=== PATIENT | female | born 1950 | race Caucasian/White ===

== ENCOUNTER 2022-07-04 09:16 | Inpatient (IN) ==
[2022-07-04] MEDS ORDERED: Dextrose 50% Syringe 50 ml 25 GM/50 ML SYRINGE IV PUSH PRN (09:40)
[2022-07-04] MEDS ORDERED: Benzocaine/Menthol LOZ PO PRN (09:51)
[2022-07-04] MEDS ORDERED: Sodium Polystyrene ORAL.SUSP 15 GM/60 ML BTL PO ONE (12:30)
[2022-07-05 06:51] LABS: ABS Eosinophils 0.4 10^3/ul (0-0.6); ABS Lymphocytes 0.8 10^3/ul (1.0-4.8); ABS Monocytes 0.6 10^3/ul (0-0.8); Eosinophil % 6.1 %; Hematocrit 28 % (35-47); Hemoglobin 9.1 g/dL (12.0-16.0); Mean Corpuscular HGB Conc 33 g/dL (31-36); Mean Corpuscular Hemoglobin 30 pg (27-31); Mean Corpuscular Volume 92 fL (80-97); Mean Platelet Volume 7.4 fL (7.4-10.4); Nucleated Red Blood Cells % 0.1; Platelet Count 228 10^3/uL (150-450); Red Blood Count 3.05 10^6 /uL (3.70-4.87); Red Cell Distribution Width 14 % (10-15); White Blood Count 5.9 10^3/uL (3.5-10.8)
[2022-07-05 07:10] LABS: ALT 14 U/L (7-52); Albumin 3.4 g/dL (3.2-5.2); Albumin/Globulin Ratio 1.5 (1-3); Alkaline Phosphatase 58 U/L (35-149); Blood Urea Nitrogen 14 mg/dL (6-24); CO2 Carbon Dioxide 27 mmol/L (22-32); Calcium 8.3 mg/dL (8.6-10.3); Chloride 102 mmol/L (101-111); Creatinine, Serum 0.83 mg/dL (0.51-0.95); Globulin 2.3 g/dL (2-4); Glucose 102 mg/dL (70-100); Sodium 135 mmol/L (135-145); Total Protein 5.7 g/dL (6.4-8.9); eGFR CKD-EPI 74.9 (>60)
[2022-07-05 07:19] LABS: Anion Gap 6 mmol/L (2-11)
[2022-07-05] MEDS: Cholecalciferol (VIT D3) 1,000 unit TAB PO SCH (07:38)
[2022-07-05] MEDS: DULoxetine DR 60 mg CAP PO SCH (07:40)
[2022-07-05] MEDS: Multivitamins/Minerals TAB PO SCH (07:41)
[2022-07-05 09:17] LABS: Potassium Redraw 5.5 mmol/L (3.5-5.0)
[2022-07-05] MEDS: Polyethylene Glycol 3350 17 GM PACKET PO SCH (09:23)
[2022-07-05] MEDS: CMCS: Cyclosporine 0.05% OPHTH (NF) 0.4 ML VIAL BOTH EYES SCH (09:24)
[2022-07-05] MEDS: Enoxaparin 40 MG/0.4 ML SYR SUBCUT SCH (09:25)
[2022-07-05] MEDS: Fluticasone NASAL SPRAY 50MCG 16 gm SPRAY BTL BOTH NARES SCH (09:28)
[2022-07-05] MEDS: Senna TAB 8.6 mg TAB PO PRN (20:02)
[2022-07-05] MEDS ORDERED: Sodium Polystyrene ORAL.SUSP 15 GM/60 ML BTL PO ONE (20:14)
[2022-07-06] MEDS: CMCS: Cyclosporine 0.05% OPHTH (NF) 0.4 ML VIAL BOTH EYES SCH (07:44)
[2022-07-06] MEDS: Fluticasone NASAL SPRAY 50MCG 16 gm SPRAY BTL BOTH NARES SCH (07:44)
[2022-07-06] MEDS: DULoxetine DR 60 mg CAP PO SCH (07:45)
[2022-07-06] MEDS: Cholecalciferol (VIT D3) 1,000 unit TAB PO SCH (07:46)
[2022-07-06] MEDS: LINAGLIPTIN 5 MG PO SCH (07:47)
[2022-07-06] MEDS: Multivitamins/Minerals TAB PO SCH (07:47)
[2022-07-06] MEDS: Enoxaparin 40 MG/0.4 ML SYR SUBCUT SCH (07:49)
[2022-07-06] MEDS: Polyethylene Glycol 3350 17 GM PACKET PO SCH (07:54)
[2022-07-06 08:47] LABS: Calcium 8.4 mg/dL (8.6-10.3); Creatinine, Serum 0.94 mg/dL (0.51-0.95); Potassium 4.4 mmol/L (3.5-5.0); eGFR CKD-EPI 64.5 (>60)
[2022-07-07] MEDS: LINAGLIPTIN 5 MG PO SCH (08:47)
[2022-07-07] MEDS: Cholecalciferol (VIT D3) 1,000 unit TAB PO SCH (08:49)
[2022-07-07] MEDS: DULoxetine DR 60 mg CAP PO SCH (08:49)
[2022-07-07] MEDS: Multivitamins/Minerals TAB PO SCH (08:49)
[2022-07-07] MEDS: Fluticasone NASAL SPRAY 50MCG 16 gm SPRAY BTL BOTH NARES SCH (08:53)
[2022-07-07] MEDS: Polyethylene Glycol 3350 17 GM PACKET PO SCH (08:54)
[2022-07-07] MEDS: Enoxaparin 40 MG/0.4 ML SYR SUBCUT SCH (08:55)
[2022-07-07] MEDS: CMCS: Cyclosporine 0.05% OPHTH (NF) 0.4 ML VIAL BOTH EYES SCH (08:57)
[2022-07-08] MEDS: Fluticasone NASAL SPRAY 50MCG 16 gm SPRAY BTL BOTH NARES SCH (08:13)
[2022-07-08] MEDS: CMCS: Cyclosporine 0.05% OPHTH (NF) 0.4 ML VIAL BOTH EYES SCH (08:13)
[2022-07-08] MEDS: Multivitamins/Minerals TAB PO SCH (08:13)
[2022-07-08] MEDS: DULoxetine DR 60 mg CAP PO SCH (08:13)
[2022-07-08] MEDS: Cholecalciferol (VIT D3) 1,000 unit TAB PO SCH (08:15)
[2022-07-08] MEDS: LINAGLIPTIN 5 MG PO SCH (08:15)
[2022-07-08] MEDS: Enoxaparin 40 MG/0.4 ML SYR SUBCUT SCH (08:16)
[2022-07-08] MEDS: Polyethylene Glycol 3350 17 GM PACKET PO SCH (09:28)
[2022-07-08] MEDS: Senna TAB 8.6 mg TAB PO PRN (21:20)
[2022-07-09] MEDS: Fluticasone NASAL SPRAY 50MCG 16 gm SPRAY BTL BOTH NARES SCH (08:53)
[2022-07-09] MEDS: CMCS: Cyclosporine 0.05% OPHTH (NF) 0.4 ML VIAL BOTH EYES SCH (08:53)
[2022-07-09] MEDS: Enoxaparin 40 MG/0.4 ML SYR SUBCUT SCH (08:54)
[2022-07-09] MEDS: LINAGLIPTIN 5 MG PO SCH (08:55)
[2022-07-09] MEDS: Polyethylene Glycol 3350 17 GM PACKET PO SCH (08:55)
[2022-07-09] MEDS: DULoxetine DR 60 mg CAP PO SCH (08:56)
[2022-07-09] MEDS: Multivitamins/Minerals TAB PO SCH (08:56)
[2022-07-09] MEDS: Cholecalciferol (VIT D3) 1,000 unit TAB PO SCH (08:56)
[2022-07-09] MEDS: Magnesium Hydroxide LIQ 30 ML UDC PO PRN (16:08)
[2022-07-09] MEDS ORDERED: Senna TAB 8.6 mg TAB PO SCH (21:00)
[2022-07-10] MEDS: Cholecalciferol (VIT D3) 1,000 unit TAB PO SCH (08:54)
[2022-07-10] MEDS: LINAGLIPTIN 5 MG PO SCH (08:58)
[2022-07-10] MEDS: Fluticasone NASAL SPRAY 50MCG 16 gm SPRAY BTL BOTH NARES SCH (08:59)
[2022-07-10] MEDS: DULoxetine DR 60 mg CAP PO SCH (09:00)
[2022-07-10] MEDS: CMCS: Cyclosporine 0.05% OPHTH (NF) 0.4 ML VIAL BOTH EYES SCH (09:01)
[2022-07-10] MEDS: Multivitamins/Minerals TAB PO SCH (09:02)
[2022-07-10] MEDS: Enoxaparin 40 MG/0.4 ML SYR SUBCUT SCH (09:03)
[2022-07-10] MEDS: Polyethylene Glycol 3350 17 GM PACKET PO SCH (09:07)
[2022-07-10] MEDS: Magnesium Hydroxide LIQ 30 ML UDC PO PRN (15:25)
[2022-07-10] MEDS: Senna TAB 8.6 mg TAB PO SCH (20:01)
[2022-07-11] MEDS: Fluticasone NASAL SPRAY 50MCG 16 gm SPRAY BTL BOTH NARES SCH (08:59)
[2022-07-11] MEDS: LINAGLIPTIN 5 MG PO SCH (09:00)
[2022-07-11] MEDS: CMCS: Cyclosporine 0.05% OPHTH (NF) 0.4 ML VIAL BOTH EYES SCH (09:00)
[2022-07-11] MEDS: Polyethylene Glycol 3350 17 GM PACKET PO SCH (09:00)
[2022-07-11] MEDS: Multivitamins/Minerals TAB PO SCH (09:02)
[2022-07-11] MEDS: Cholecalciferol (VIT D3) 1,000 unit TAB PO SCH (09:02)
[2022-07-11] MEDS: DULoxetine DR 60 mg CAP PO SCH (09:02)
[2022-07-11] MEDS: Enoxaparin 40 MG/0.4 ML SYR SUBCUT SCH (09:06)
[2022-07-11] MEDS: Senna TAB 8.6 mg TAB PO SCH (21:04)
[2022-07-12 06:27] LABS: ABS Basophils 0.1 10^3/ul (0-0.2); ABS Eosinophils 0.4 10^3/ul (0-0.6); ABS Lymphocytes 1.6 10^3/ul (1.0-4.8); ABS Monocytes 0.8 10^3/ul (0-0.8); ABS Neutrophils 5.4 10^3/ul (1.5-7.7); Hematocrit 31 % (35-47); Hemoglobin 10.2 g/dL (12.0-16.0); Lymphocyte % 19.7 %; Mean Corpuscular HGB Conc 33 g/dL (31-36); Mean Corpuscular Hemoglobin 30 pg (27-31); Mean Corpuscular Volume 91 fL (80-97); Platelet Count 469 10^3/uL (150-450); Red Blood Count 3.39 10^6 /uL (3.70-4.87); Red Cell Distribution Width 15 % (10-15); White Blood Count 8.3 10^3/uL (3.5-10.8)
[2022-07-12 06:46] LABS: Albumin 3.8 g/dL (3.2-5.2); Albumin/Globulin Ratio 1.7 (1-3); Calcium 9.1 mg/dL (8.6-10.3); Creatinine, Serum 0.91 mg/dL (0.51-0.95); Globulin 2.3 g/dL (2-4); Potassium 4.9 mmol/L (3.5-5.0); Total Bilirubin 0.6 mg/dL (0.2-1.0); Total Protein 6.1 g/dL (6.4-8.9)
[2022-07-12] MEDS: Polyethylene Glycol 3350 17 GM PACKET PO SCH (07:33)
[2022-07-12] MEDS: Cholecalciferol (VIT D3) 1,000 unit TAB PO SCH (07:36)
[2022-07-12] MEDS: DULoxetine DR 60 mg CAP PO SCH (07:37)
[2022-07-12] MEDS: Multivitamins/Minerals TAB PO SCH (07:37)
[2022-07-12] MEDS: LINAGLIPTIN 5 MG PO SCH (07:37)
[2022-07-12] MEDS: Enoxaparin 40 MG/0.4 ML SYR SUBCUT SCH (07:41)
[2022-07-12] MEDS: CMCS: Cyclosporine 0.05% OPHTH (NF) 0.4 ML VIAL BOTH EYES SCH (10:32)
[2022-07-12] MEDS: Fluticasone NASAL SPRAY 50MCG 16 gm SPRAY BTL BOTH NARES SCH (10:34)
[2022-07-12] MEDS: Magnesium Hydroxide LIQ 30 ML UDC PO PRN (17:12)
[2022-07-12] MEDS: Senna TAB 8.6 mg TAB PO SCH (19:09)
[2022-07-13] MEDS: Fluticasone NASAL SPRAY 50MCG 16 gm SPRAY BTL BOTH NARES SCH (08:04)
[2022-07-13] MEDS: LINAGLIPTIN 5 MG PO SCH (08:04)
[2022-07-13] MEDS: Cholecalciferol (VIT D3) 1,000 unit TAB PO SCH (08:07)
[2022-07-13] MEDS: CMCS: Cyclosporine 0.05% OPHTH (NF) 0.4 ML VIAL BOTH EYES SCH (08:08)
[2022-07-13] MEDS: DULoxetine DR 60 mg CAP PO SCH (08:09)
[2022-07-13] MEDS: Multivitamins/Minerals TAB PO SCH (08:09)
[2022-07-13] MEDS: Enoxaparin 40 MG/0.4 ML SYR SUBCUT SCH (08:11)
[2022-07-13] MEDS: Polyethylene Glycol 3350 17 GM PACKET PO SCH (08:50)
[2022-07-13] MEDS: Magnesium Hydroxide LIQ 30 ML UDC PO PRN (19:06)
[2022-07-13] MEDS: Senna TAB 8.6 mg TAB PO SCH (21:42)
[2022-07-14] MEDS: Polyethylene Glycol 3350 17 GM PACKET PO SCH (07:21)
[2022-07-14] MEDS: Cholecalciferol (VIT D3) 1,000 unit TAB PO SCH (07:21)
[2022-07-14] MEDS: LINAGLIPTIN 5 MG PO SCH (07:21)
[2022-07-14] MEDS: Multivitamins/Minerals TAB PO SCH (07:27)
[2022-07-14] MEDS: DULoxetine DR 60 mg CAP PO SCH (07:27)
[2022-07-14] MEDS: CMCS: Cyclosporine 0.05% OPHTH (NF) 0.4 ML VIAL BOTH EYES SCH (07:28)
[2022-07-14] MEDS: Fluticasone NASAL SPRAY 50MCG 16 gm SPRAY BTL BOTH NARES SCH (07:29)
[2022-07-14] MEDS: Enoxaparin 40 MG/0.4 ML SYR SUBCUT SCH (07:29)
[2022-07-14] MEDS: Senna TAB 8.6 mg TAB PO SCH (21:55)
[2022-07-15] MEDS: Polyethylene Glycol 3350 17 GM PACKET PO SCH (08:31)
[2022-07-15] MEDS: LINAGLIPTIN 5 MG PO SCH (08:32)
[2022-07-15] MEDS: Cholecalciferol (VIT D3) 1,000 unit TAB PO SCH (08:33)
[2022-07-15] MEDS: CMCS: Cyclosporine 0.05% OPHTH (NF) 0.4 ML VIAL BOTH EYES SCH (08:35)
[2022-07-15] MEDS: Fluticasone NASAL SPRAY 50MCG 16 gm SPRAY BTL BOTH NARES SCH (08:38)
[2022-07-15] MEDS: Multivitamins/Minerals TAB PO SCH (08:38)
[2022-07-15] MEDS: DULoxetine DR 60 mg CAP PO SCH (08:38)
[2022-07-15] MEDS: Enoxaparin 40 MG/0.4 ML SYR SUBCUT SCH (08:40)
[2022-07-15] MEDS ORDERED: Lactulose 30 ml UDC PO PRN (17:44)
[2022-07-15] MEDS: Senna TAB 8.6 mg TAB PO SCH (20:48)
[2022-07-16] MEDS: DULoxetine DR 60 mg CAP PO SCH (08:35)
[2022-07-16] MEDS: Cholecalciferol (VIT D3) 1,000 unit TAB PO SCH (08:35)
[2022-07-16] MEDS: LINAGLIPTIN 5 MG PO SCH (08:36)
[2022-07-16] MEDS: CMCS: Cyclosporine 0.05% OPHTH (NF) 0.4 ML VIAL BOTH EYES SCH (08:36)
[2022-07-16] MEDS: Enoxaparin 40 MG/0.4 ML SYR SUBCUT SCH (08:36)
[2022-07-16] MEDS: Polyethylene Glycol 3350 17 GM PACKET PO SCH (08:37)
[2022-07-16] MEDS: Multivitamins/Minerals TAB PO SCH (08:37)
[2022-07-16] MEDS: Fluticasone NASAL SPRAY 50MCG 16 gm SPRAY BTL BOTH NARES SCH (15:21)
[2022-07-16] MEDS: Senna TAB 8.6 mg TAB PO SCH (21:24)
[2022-07-17] MEDS: Cholecalciferol (VIT D3) 1,000 unit TAB PO SCH (08:16)
[2022-07-17] MEDS: Multivitamins/Minerals TAB PO SCH (08:16)
[2022-07-17] MEDS: Fluticasone NASAL SPRAY 50MCG 16 gm SPRAY BTL BOTH NARES SCH (08:16)
[2022-07-17] MEDS: CMCS: Cyclosporine 0.05% OPHTH (NF) 0.4 ML VIAL BOTH EYES SCH (08:17)
[2022-07-17] MEDS: DULoxetine DR 60 mg CAP PO SCH (08:17)
[2022-07-17] MEDS: Polyethylene Glycol 3350 17 GM PACKET PO SCH (08:17)
[2022-07-17] MEDS: LINAGLIPTIN 5 MG PO SCH (08:17)
[2022-07-17] MEDS: Enoxaparin 40 MG/0.4 ML SYR SUBCUT SCH (08:18)
[2022-07-17] MEDS: Senna TAB 8.6 mg TAB PO SCH (20:20)
[2022-07-18] MEDS: LINAGLIPTIN 5 MG PO SCH (07:56)
[2022-07-18] MEDS: Polyethylene Glycol 3350 17 GM PACKET PO SCH (07:56)
[2022-07-18] MEDS: Fluticasone NASAL SPRAY 50MCG 16 gm SPRAY BTL BOTH NARES SCH (07:57)
[2022-07-18] MEDS: CMCS: Cyclosporine 0.05% OPHTH (NF) 0.4 ML VIAL BOTH EYES SCH (07:57)
[2022-07-18] MEDS: DULoxetine DR 60 mg CAP PO SCH (07:58)
[2022-07-18] MEDS: Multivitamins/Minerals TAB PO SCH (07:58)
[2022-07-18] MEDS: Cholecalciferol (VIT D3) 1,000 unit TAB PO SCH (08:00)
[2022-07-18] MEDS: Enoxaparin 40 MG/0.4 ML SYR SUBCUT SCH (08:02)
[2022-07-18] MEDS: Senna TAB 8.6 mg TAB PO SCH (20:29)
[2022-07-19 06:41] LABS: ABS Basophils 0.1 10^3/ul (0-0.2); ABS Eosinophils 0.3 10^3/ul (0-0.6); ABS Lymphocytes 1.2 10^3/ul (1.0-4.8); ABS Monocytes 0.7 10^3/ul (0-0.8); ABS Neutrophils 4.2 10^3/ul (1.5-7.7); Eosinophil % 5.1 %; Hematocrit 30 % (35-47); Hemoglobin 9.9 g/dL (12.0-16.0); Lymphocyte % 17.9 %; Mean Corpuscular HGB Conc 33 g/dL (31-36); Mean Corpuscular Hemoglobin 30 pg (27-31); Mean Corpuscular Volume 92 fL (80-97); Mean Platelet Volume 6.9 fL (7.4-10.4); Platelet Count 426 10^3/uL (150-450); Red Blood Count 3.29 10^6 /uL (3.70-4.87); Red Cell Distribution Width 15 % (10-15); White Blood Count 6.4 10^3/uL (3.5-10.8)
[2022-07-19 07:13] LABS: Albumin 3.5 g/dL (3.2-5.2); Albumin/Globulin Ratio 1.7 (1-3); Calcium 8.8 mg/dL (8.6-10.3); Creatinine, Serum 0.78 mg/dL (0.51-0.95); Globulin 2.1 g/dL (2-4); Potassium 4.8 mmol/L (3.5-5.0); Total Bilirubin 0.5 mg/dL (0.2-1.0); Total Protein 5.6 g/dL (6.4-8.9); eGFR CKD-EPI 80.6 (>60)
[2022-07-19] MEDS: Fluticasone NASAL SPRAY 50MCG 16 gm SPRAY BTL BOTH NARES SCH (10:13)
[2022-07-19] MEDS: Polyethylene Glycol 3350 17 GM PACKET PO SCH (10:14)
[2022-07-19] MEDS: CMCS: Cyclosporine 0.05% OPHTH (NF) 0.4 ML VIAL BOTH EYES SCH (10:14)
[2022-07-19] MEDS: DULoxetine DR 60 mg CAP PO SCH (10:14)
[2022-07-19] MEDS: Cholecalciferol (VIT D3) 1,000 unit TAB PO SCH (10:15)
[2022-07-19] MEDS: Enoxaparin 40 MG/0.4 ML SYR SUBCUT SCH (10:15)
[2022-07-19] MEDS: Multivitamins/Minerals TAB PO SCH (10:15)
[2022-07-19] MEDS: LINAGLIPTIN 5 MG PO SCH (10:19)
[2022-07-19] MEDS: Senna TAB 8.6 mg TAB PO SCH (20:48)
[2022-07-20 05:15] VITALS: BP 149/72
[2022-07-20] MEDS: Cholecalciferol (VIT D3) 1,000 unit TAB PO SCH (08:12)
[2022-07-20] MEDS: Polyethylene Glycol 3350 17 GM PACKET PO SCH (08:12)
[2022-07-20] MEDS: Enoxaparin 40 MG/0.4 ML SYR SUBCUT SCH (08:12)
[2022-07-20] MEDS: LINAGLIPTIN 5 MG PO SCH (08:19)
[2022-07-20] MEDS: Multivitamins/Minerals TAB PO SCH (08:19)
[2022-07-20] MEDS: Fluticasone NASAL SPRAY 50MCG 16 gm SPRAY BTL BOTH NARES SCH (08:19)
[2022-07-20] MEDS: DULoxetine DR 60 mg CAP PO SCH (08:20)
[2022-07-20] MEDS: CMCS: Cyclosporine 0.05% OPHTH (NF) 0.4 ML VIAL BOTH EYES SCH (08:21)
== END 2022-07-20 12:00 | disposition home or self-care (01) | DRG 560 ==
LOC: PMRU 09:38
PROVIDERS: ADMIT Physical Medicine & Rehabilitation; ATTEND Physical Medicine & Rehabilitation